=== PATIENT | female | born 1990 | race African-American/Black ===

== ENCOUNTER 2017-03-11 00:11 | Emergency (ER) | payer SELFPAY ==
[~2017-03-11] VITALS: Ht 160 cm; Wt 46.7 kg
[~2017-03-11 00:11] MED LIST: CIPR250T30 PO
[2017-03-11 00:25] VITALS: BP 121/72
--- NOTE | 2017-03-11 00:27 | PHYS DOC ---
Past Medical History Past Medical History: No Pertinent History, Cancer Past Surgical History: Other Additional Past Surgical Histo: CANCER Alcohol Use: None Drug Use: None Adult General Chief Complaint Chief Complaint: FOREIGNBODY EAR HPI HPI Patient is a 26 year old female presenting to the emergency department for evaluation of right ear pain and foreign body sensation. Review of Systems Review of Systems Constitutional: Denies fever or chills [] Allergies Allergies Allergies Coded Allergies Type Severity Reaction Last Updated Verified No Known Drug Allergies 11/27/13 No Physical Exam Physical Exam Constitutional: Well developed, well nourished, no acute distress, non-toxic appearance. [] HENT: Normocephalic, atraumatic, right TM appeared to be bulging with some erythema but no purulence or foreign body noted. Current Patient Data Vital Signs Vital Signs Date Time Temp Pulse Resp B/P (MAP) Pulse Ox O2 Delivery O2 Flow Rate FiO2 03/11/17 00:25 98.7 67 14 99 Room Air 98.7 EKG EKG [] Radiology/Procedures Radiology/Procedures [] Course & Med Decision Making Course & Med Decision Making As I was getting ready to examine her left ear she answered the phone and stated on the phone so had to walk out of the room as there was an ambulance coming into the emergency department. After I saw the ambulance patient the patient and walked out of the room and said that she had to go to [facility] as her daughter is being rushed to the hospital. Patient left AGAINST MEDICAL ADVICE in a hurry to go take care of her daughter. Dragon Disclaimer Dragon Disclaimer This electronic medical record was generated, in whole or in part, using a voice recognition dictation system. Departure Departure Impression: Primary Impression: Acute effusion of right ear Disposition: AGAINST MEDICAL ADVICE Condition: STABLE Referrals: NO PCP (PCP) SUMA JULES DO Mar 11, 2017 00:27
== END 2017-03-11 00:37 | disposition left against medical advice (07) ==
LOC: ER 00:11
DX: H93.8X1 Other specified disorders of right ear (principal)
CPT/HCPCS: 99281

== ENCOUNTER 2020-01-28 13:08 | Emergency (ER) | payer SELFPAY ==
[~2020-01-28] VITALS: Ht 162.6 cm; Wt 53.0 kg
[2020-01-28] MEDS ORDERED: ONDANSETRON PF 4 MG/2 ML VIAL. IVP ONE (13:45)
[2020-01-28] MEDS ORDERED: IV NORMAL SALINE 1000ML BAG 1,000 ML IV ONE (13:45)
[2020-01-28 13:53] LABS: BASO % 0 % (0-3); EOS % 0 % (0-3); HEMATOCRIT 32.4 % (36.0-47.0); HEMOGLOBIN 11.2 g/dL (12.0-15.5); LYMPH # 0.5 x10^3/uL (1.0-4.8); LYMPH % 4 % (24-48); MEAN CORPUSCULAR HEMOGLOBIN 33 pg (25-35); MEAN CORPUSCULAR HGB CONC 35 g/dL (31-37); MEAN CORPUSCULAR VOLUME 95 fL (79-100); MONO # 1.5 x10^3/uL (0.0-1.1); MONO % 12 % (0-9); NEUT # 10.5 x10^3/uL (1.8-7.7); NEUT % 84 % (31-73); PLATELET COUNT 285 x10^3/uL (140-400); RED BLOOD COUNT 3.43 x10^6/uL (3.50-5.40); RED CELL DISTRIBUTION WIDTH 11.9 % (11.5-14.5); WHITE BLOOD COUNT 12.6 x10^3/uL (4.0-11.0)
[2020-01-28 13:57] LABS: BILIRUBIN,URINE SMALL (NEG); CLARITY,URINE CLOUDY; COLOR,URINE AMBER; NITRITE,URINE POSITIVE (NEG); PROTEIN,URINE 100 mg/dL (NEG-TRACE)
[2020-01-28 13:58] LABS: WBC,URINE >40 /HPF (0-4)
--- NOTE | 2020-01-28 13:58 | PHYS DOC ---
Past Medical History Past Medical History: Other Additional Past Medical Histor: cancer as a child Past Surgical History: Other Additional Past Surgical Histo: CANCER RIGHT JAW SURGERIES Smoking Status: Never Smoker Alcohol Use: None Drug Use: None General Adult EDM: Chief Complaint: VOMITING IN HPI: HPI: Patient is a 29 year old female 3 para 1 with 1 miscarriage currently 2 months presenting to the ED today complaining of nausea vomiting that began 4 days ago. Patient is also complaining of slight abdominal pain and a migraine headache. She states symptoms are worse when she is vomiting. She states she has had similar issues with the previous . She states she has tried regular Tylenol with no relief, she ended up taking extra strength Tylenol with no relief, she states her mother gave her Excedrin Migraine which helped with her symptoms specifically migraine but nausea and vomiting did not go away. Patient denies any fever. Denies any urgency, frequency, dysuria. She states she used to follow up with an OBGYN in her previous and she tried calling the office today and was told the OBGYN . Chart shows she was seen by Dr. Tiago Gomez before. Review of Systems: Review of Systems: Constitutional: Denies fever or chills. [] Eyes: Denies change in visual acuity. [] HENT: Denies nasal congestion or sore throat. [] Respiratory: Denies cough or shortness of breath. [] Cardiovascular: Denies chest pain or edema. [] GI: Reports slight abdominal pain with nausea and vomiting in , denies bloody stools or diarrhea. [] : Denies dysuria. [] Musculoskeletal: Denies back pain or joint pain. [] Integument: Denies rash. [] Neurologic: Reports migraine headache, denies focal weakness or sensory changes. [] Psychiatric: Denies depression or anxiety. [] Heart Score: Risk Factors: Risk Factors: DM, Current or recent (<one month) smoker, HTN, HLP, family history of CAD, obesity. Risk Scores: Score 0 - 3: 2.5% MACE over next 6 weeks - Discharge Home Score 4 - 6: 20.3% MACE over next 6 weeks - Admit for Clinical Observation Score 7 - 10: 72.7% MACE over next 6 weeks - Early Invasive Strategies Current Medications: Current Medications Medications (Trade) Dose Ordered Sig/Irving Start Time Stop Time Status Last Admin Dose Admin Ondansetron HCl (Zofran) 4 mg 1X ONCE 01/28/20 13:45 01/28/20 13:46 DC Sodium Chloride 1,000 ml @ 1,000 mls/hr 1X ONCE 01/28/20 13:45 01/28/20 14:44 01/28/20 13:45 1,000 MLS/HR Allergies: Allergies: Allergies Coded Allergies Type Severity Reaction Last Updated Verified No Known Drug Allergies 11/27/13 No Physical Exam: PE: Constitutional: Thin appearing patient, no acute distress, non-toxic appearance. [] HENT: Normocephalic, atraumatic, bilateral external ears normal, oropharynx moist, no oral exudates, nose normal. [] Eyes: PERRLA, EOMI, conjunctiva normal, no discharge. [] Neck: Normal range of motion, no tenderness, supple, no stridor. [] Cardiovascular:Heart rate regular rhythm, no murmur [] Lungs & Thorax: Bilateral breath sounds clear to auscultation [] Abdomen: Bowel sounds normal, soft, no tenderness, no masses, no pulsatile masses. [] Skin: Warm, dry, no erythema, no rash. [] Back: No tenderness, no CVA tenderness. [] Extremities: No tenderness, no cyanosis, no clubbing, ROM intact, no edema. [] Neurologic: Alert and oriented X 3, normal motor function, normal sensory function, no focal deficits noted. [] Psychologic: Affect normal, judgement normal, mood normal. [] Current Patient Data: Labs: Laboratory Tests Test 01/28/20 13:28 POC Urine HCG, Qualitative Hcg positive (Negative) Vital Signs: Vital Signs Date Time Temp Pulse Resp B/P (MAP) Pulse Ox O2 Delivery O2 Flow Rate FiO2 01/28/20 13:20 98.7 134 16 109/61 (77) 100 Room Air 98.7 EKG: EKG: [] Radiology/Procedures: Radiology/Procedures: []PROCEDURE: OB < 14 WKS OB < 14 WKS History: Reason: abd pain in / Spl. Instructions: / History: Comparison: None. Technique: Grayscale and color Doppler imaging of the pelvis was performed using transabdominal technique. Findings: The uterus measures 11 x 9 x 7 cm. Single intrauterine gestational sac rounded ovoid appearance. Yolk sac identified. pole is also identified. [place]-rump length 2.37 m. Estimated gestational age by ultrasound 9 weeks 0 days. heart rate with 185 bpm. Right ovary measures 3.7 x 2.0 x 2.2 cm. Dominant right ovarian follicles. Left ovary measures 3.7 x 2.7 x 1.9 cm. No adnexal masses are seen. IMPRESSION: 1. Single intrauterine gestational age 9 weeks and heart rate 185 bpm. Electronically signed by: Yaron Davis DO (01/28/2020 2:22 PM) [facility] DICTATED and SIGNED BY: YARON DAVIS DO DATE: 01/28/20 1422 Course & Med Decision Making: Course & Med Decision Making Pertinent Labs and Imaging studies reviewed. (See chart for details) This is a 29-year-old female patient 3 para 1, with 1 miscarriage currently 2 months presenting to the ED today complaining of nausea, vomiting, migraine headache and abdominal pain in symptoms of 4 days. Patient reports not seeing the OB in this , apparently her [employer] . Positive urine hCG, beta-hCG 127,801 OB ultrasound noted for Single intrauterine gestational age 9 weeks and heart rate 185 bpm Urine analysis noted for UTI and Trichomonas. CBC with a slightly elevated WBC of 12.6. Patient was treated for UTI and STDs. Education provided. Discharged to home in stable condition. Dragon Disclaimer: Rosina Disclaimer: This electronic medical record was generated, in whole or in part, using a voice recognition dictation system. Departure Departure Impression: Primary Impression: Urinary tract infection during Qualified Codes: O23.41 - Unspecified infection of urinary tract in , first trimester Additional Impressions: Migraine headache Qualified Codes: G43.909 - Migraine, unspecified, not intractable, without status migrainosus Nausea and vomiting during Abdominal pain in Qualified Codes: O26.891 - Other specified related conditions, first trimester; R10.9 - Unspecified abdominal pain Trichomonas vaginitis Disposition: HOME, SELF-CARE Condition: STABLE Referrals: NO PCP (PCP) DADA DAVIS MD follow up next week Patient Instructions: Abdominal Pain During , Diet - Hyperemesis Gravidarum, - Urinary Tract Infection Additional Instructions: You were evaluated in the emergency room and noted to be 9 weeks . You also have trichomonas and urinary tract infection. Please complete the prescribed antibiotics. Ensure you contact your partners, let them know you were treated for STDs and have them seek treatment too. Consider not having any intercourse for 1 week. Use protection after that. Follow-up with the provided [employer] in the course of this week or next week. Do not take Excedrin while . Take Tylenol as needed for pain. Scripts Prochlorperazine Maleate (Compazine) 10 Mg Tablet 1 TAB PO Q6HRS for 7 Days, #28 TAB 0 Refills Prov: ERIC DANIELSON APRN 01/28/20 Cephalexin (CEPHALEXIN) 500 Mg Tablet 1 TAB PO BID, #14 TAB Prov: ERIC DANIELSON APRN 01/28/20 ERIC DANIELSON APRN Jan 28, 2020 13:58
[2020-01-28 13:59] LABS: TRICHOMONAS,URINE PRESENT
[2020-01-28 14:06] LABS: CALCIUM 8.7 mg/dL (8.5-10.1); CREATININE 0.9 mg/dL (0.6-1.0); GFR 90.9; POTASSIUM 3.4 mmol/L (3.5-5.1)
[2020-01-28 14:06] LABS: BACTERIA,URINE MANY /HPF (0-FEW)
[2020-01-28 14:12] LABS: ALBUMIN 3.1 g/dL (3.4-5.0); ALBUMIN/GLOBULIN RATIO 0.7 (1.0-1.7); TOTAL BILIRUBIN 0.3 mg/dL (0.2-1.0); TOTAL PROTEIN 7.3 g/dL (6.4-8.2)
--- NOTE | 2020-01-28 14:25 | RAD ---
OB < 14 WKS History: Reason: abd pain in / Spl. Instructions: / History: Comparison: None. Technique: Grayscale and color Doppler imaging of the pelvis was performed using transabdominal technique. Findings: The uterus measures 11 x 9 x 7 cm. Single intrauterine gestational sac rounded ovoid appearance. Yolk sac identified. pole is also identified. [place]-rump length 2.37 m. Estimated gestational age by ultrasound 9 weeks 0 days. heart rate with 185 bpm. Right ovary measures 3.7 x 2.0 x 2.2 cm. Dominant right ovarian follicles. Left ovary measures 3.7 x 2.7 x 1.9 cm. No adnexal masses are seen. IMPRESSION: 1. Single intrauterine gestational age 9 weeks and heart rate 185 bpm. Electronically signed by: Yaron Davis DO (01/28/2020 2:22 PM) [facility]
[2020-01-28] MEDS ORDERED: metroNIDAZOLE 500 MG TABLET PO ONE (14:30)
[2020-01-28] MEDS ORDERED: AZITHROMYCIN 250 MG TABLET. PO ONE (14:30)
[2020-01-28] MEDS ORDERED: cefTRIAXone IV Push 1 GM VIAL. IVP ONE (14:30)
[2020-01-28 14:44] LABS: % BANDS 7 % (0-9); % LYMPHS 7 % (24-48); % MONOS 7 % (0-10); % SEGS 79 % (35-66); PLT ESTIMATE ADEQUATE (ADEQUATE)
[2020-01-28] MEDS ORDERED: PROC10TA57 PO (14:53)
[2020-01-28] MEDS ORDERED: CEPH500T PO (14:53)
[2020-01-28 15:11] VITALS: BP 105/61
== END 2020-01-28 15:23 | disposition home or self-care (01) ==
LOC: ER 13:08
DX: O23.41 Unspecified infection of urinary tract in pregnancy, first trimester (principal); G43.909 Migraine, unspecified, not intractable, without status migrainosus; R11.2 Nausea with vomiting, unspecified; O98.311 Other infections with a predominantly sexual mode of transmission complicating pregnancy, first trimester; A59.01 Trichomonal vulvovaginitis; Z3A.08 8 weeks gestation of pregnancy
CPT/HCPCS: 36415; 76801; 80053; 81001; 81025; 84702; 85007; 85025; 87086; 96361; 96374; 96375; 99284; J0696; J2405; J7030

== ENCOUNTER 2021-05-24 18:42 | Emergency (ER) | payer SELFPAY ==
[~2021-05-24] VITALS: Ht 162.6 cm; Wt 54.0 kg
[~2021-05-24 18:42] MED LIST changes: +CEPH500T PO; +PROC10TA57 PO
[2021-05-24 19:39] VITALS: BP 104/67
== END 2021-05-24 23:30 | disposition left against medical advice (07) ==
LOC: ER 18:42
DX: O26.892 Other specified pregnancy related conditions, second trimester (principal); R10.9 Unspecified abdominal pain; Z53.21 Procedure and treatment not carried out due to patient leaving prior to being seen by health care provider